=== PATIENT | female | born 1940 | race Caucasian/White ===

== ENCOUNTER 2018-01-21 19:19 | Emergency (ER) | payer OTHER ==
[~2018-01-21] VITALS: Ht 157.5 cm; Wt 54.0 kg
[2018-01-21] MEDS ORDERED: CENTRUM SILVER1 EAC3 (19:36)
== END 2018-01-22 02:50 | disposition home or self-care (01) ==
LOC: ER 19:19
DX: R41.0 Disorientation, unspecified (principal)

== ENCOUNTER 2018-11-22 01:18 | Inpatient (IN) | payer OTHER ==
[~2018-11-22] VITALS: Ht 154.9 cm; Wt 37.6 kg
[~2018-11-22 01:18] MED LIST: CENTRUM SILVER1 EAC3
== END 2018-12-09 17:25 | disposition home or self-care (01) | DRG 871 ==
LOC: ER 01:18 → EDBD 01:20 → MEDJ 13:07
PROVIDERS: ADMIT Internal Medicine
PROC: 4A033R1 Measurement of Arterial Saturation, Peripheral, Percutaneous Approach (ICD-10-PCS; principal; 2018-11-22)
PROC: 3E0F7GC Introduction of Other Therapeutic Substance into Respiratory Tract, Via Natural or Artificial Opening (ICD-10-PCS; 2018-11-22)
PROC: 8E0ZXY6 Isolation (ICD-10-PCS; 2018-11-22)
DX: A41.9 Sepsis, unspecified organism (principal); L89.154 Pressure ulcer of sacral region, stage 4; J10.08 Influenza due to other identified influenza virus with other specified pneumonia; J15.7 Pneumonia due to Mycoplasma pneumoniae; B37.49 Other urogenital candidiasis; J98.11 Atelectasis; I96 Gangrene, not elsewhere classified; B37.0 Candidal stomatitis; M46.28 Osteomyelitis of vertebra, sacral and sacrococcygeal region; L89.159 Pressure ulcer of sacral region, unspecified stage; Z74.01 Bed confinement status; F03.90 Unspecified dementia, unspecified severity, without behavioral disturbance, psychotic disturbance, mood disturbance, and anxiety; B96.29 Other Escherichia coli [E. coli] as the cause of diseases classified elsewhere; B96.1 Klebsiella pneumoniae [K. pneumoniae] as the cause of diseases classified elsewhere; Z93.1 Gastrostomy status

== ENCOUNTER 2019-02-06 13:50 | Emergency (ER) | payer OTHER ==
[~2019-02-06] VITALS: Ht 152.4 cm; Wt 43.1 kg
== END 2019-02-06 17:22 | disposition home or self-care (01) ==
LOC: ER 13:50
DX: T78.3XXA Angioneurotic edema, initial encounter (principal)

== ENCOUNTER 2019-02-22 11:48 | Emergency (ER) | payer OTHER ==
[~2019-02-22] VITALS: Ht 152.4 cm; Wt 43.1 kg
== END 2019-02-22 14:45 | disposition home or self-care (01) ==
LOC: ER 11:48
DX: T78.49XA Other allergy, initial encounter (principal); X58.XXXA Exposure to other specified factors, initial encounter

== ENCOUNTER 2019-04-23 19:01 | Emergency (ER) | payer OTHER ==
[~2019-04-23] VITALS: Ht 152.4 cm; Wt 45.4 kg
== END 2019-04-23 22:56 | disposition home or self-care (01) ==
LOC: ER 19:01
DX: L98.498 Non-pressure chronic ulcer of skin of other sites with other specified severity (principal); L03.114 Cellulitis of left upper limb; N39.0 Urinary tract infection, site not specified; B96.1 Klebsiella pneumoniae [K. pneumoniae] as the cause of diseases classified elsewhere; R31.0 Gross hematuria; R50.9 Fever, unspecified

== ENCOUNTER 2020-07-17 19:35 | Emergency (ER) | payer OTHER ==
[~2020-07-17] VITALS: Ht 152.4 cm; Wt 45.4 kg
[2020-07-17] MEDS ORDERED: MACRODANTIN100 M1 PO (23:53)
== END 2020-07-17 23:51 | disposition home or self-care (01) ==
LOC: ER 19:35
DX: N39.0 Urinary tract infection, site not specified (principal); Z03.818 Encounter for observation for suspected exposure to other biological agents ruled out

== ENCOUNTER 2020-09-03 17:43 | Emergency (ER) | payer OTHER ==
[~2020-09-03] VITALS: Ht 154.9 cm; Wt 47.6 kg
[~2020-09-03 17:43] MED LIST changes: +MACRODANTIN100 M1 PO
== END 2020-09-03 22:34 | disposition home or self-care (01) ==
LOC: ER 17:43
DX: E86.0 Dehydration (principal); E87.8 Other disorders of electrolyte and fluid balance, not elsewhere classified; G30.8 Other Alzheimer's disease; F02.80 Dementia in other diseases classified elsewhere, unspecified severity, without behavioral disturbance, psychotic disturbance, mood disturbance, and anxiety

== ENCOUNTER 2020-10-12 17:23 | Inpatient (IN) | payer OTHER ==
[~2020-10-12] VITALS: Ht 152.4 cm; Wt 47.6 kg
[2020-10-12] MEDS ORDERED: FLUCONAZOLE100 MG (17:40)
== END 2020-11-02 22:10 | disposition home or self-care (01) | DRG 699 ==
LOC: ER 17:23 → SURH 21:00 → SEC-K 21:00 → SURH 10-14 04:29
PROVIDERS: ADMIT Internal Medicine; ATTEND Internal Medicine
PROC: 02HV33Z Insertion of Infusion Device into Superior Vena Cava, Percutaneous Approach (ICD-10-PCS; principal; 2020-10-18)
DX: T83.518A Infection and inflammatory reaction due to other urinary catheter, initial encounter (principal); K94.22 Gastrostomy infection; B95.2 Enterococcus as the cause of diseases classified elsewhere; L89.153 Pressure ulcer of sacral region, stage 3; L89.152 Pressure ulcer of sacral region, stage 2; L08.89 Other specified local infections of the skin and subcutaneous tissue; B96.1 Klebsiella pneumoniae [K. pneumoniae] as the cause of diseases classified elsewhere; E86.0 Dehydration; D72.829 Elevated white blood cell count, unspecified; G30.8 Other Alzheimer's disease; F02.80 Dementia in other diseases classified elsewhere, unspecified severity, without behavioral disturbance, psychotic disturbance, mood disturbance, and anxiety; Z74.01 Bed confinement status; Z20.822 Contact with and (suspected) exposure to COVID-19